=== PATIENT | male | born 1950 | race Caucasian/White ===

== ENCOUNTER → 2017-03-27 | Day surgery (SDC) | payer MEDICARE ==
[~2017-03-27] MED LIST: CENTRUM COMPLE1 EACH PO; CYMBALTA 30MG C30 MG PO; GLUCOTROL10 MG PO; HUMULIN R100 UNIT/1 SQ; LEVEMIR VI100 UNITS/ SQ; LIPITOR40 MG PO; LOSARTAN-HCTZ1 EAC2 PO; NEURONTIN400 MG PO; ONE TOUCH ULT1 STRIP; PRILOSEC20 MG PO
[2017-03-27 11:28] LABS: ALBUMIN 1.3 g/dL (3.4-4.8); BILIRUBIN - TOTAL 0.2 mg/dL (0.1-1.0); CREATININE 0.3 mg/dL (0.7-1.2); GLOBULIN (CALCULATION) 1.3 g/dL (2.2-4.2); POTASSIUM 4.2 mmol/L (3.5-5.1); TOTAL PROTEIN 2.6 g/dL (6.4-8.3)
[2017-03-27 11:50] LABS: HGB 6.7 g/dl (13.2-18.0); RBC 2.24 M/uL (4.70-6.00)
[2017-03-27 11:51] LABS: HCT 21.1 % (42.0-52.0); MCH 29.9 pg (25.0-31.0); MCHC 31.8 g/dL (32.0-36.0); MCV 94.2 fL (78.0-100.0); PLT 88 K/uL (150-400); WBC 2.8 K/uL (4.0-10.5)
== END | disposition home or self-care (01) ==
LOC: FAS 10:22
PROVIDERS: Surgery
DX: K21.0 Gastro-esophageal reflux disease with esophagitis (principal); K29.70 Gastritis, unspecified, without bleeding; I10 Essential (primary) hypertension; E11.40 Type 2 diabetes mellitus with diabetic neuropathy, unspecified; E78.00 Pure hypercholesterolemia, unspecified; J44.9 Chronic obstructive pulmonary disease, unspecified; J45.909 Unspecified asthma, uncomplicated; M19.90 Unspecified osteoarthritis, unspecified site; Z88.5 Allergy status to narcotic agent; Z85.828 Personal history of other malignant neoplasm of skin; Z87.891 Personal history of nicotine dependence; Z87.442 Personal history of urinary calculi; Z82.3 Family history of stroke; Z81.1 Family history of alcohol abuse and dependence; Z79.84 Long term (current) use of oral hypoglycemic drugs; Z79.4 Long term (current) use of insulin; Z79.899 Other long term (current) drug therapy; Z98.890 Other specified postprocedural states
CPT/HCPCS: 36415; 80053; 88305; J2704

== ENCOUNTER 2022-04-30 15:35 | Emergency (ER) | payer MEDICARE ==
[2022-04-30 16:00] LABS: BASOPHIL 0.9 % (0-2); EOSINOPHIL 1.2 % (0-7); HCT 42.8 % (42.0-52.0); HGB 13.8 g/dl (13.2-18.0); LYMPHOCYTE 29.5 % (15-48); MCH 31.8 pg (25.0-31.0); MCHC 32.2 g/dL (32.0-36.0); MCV 98.6 fL (78.0-100.0); MONOCYTE 10.1 % (0-12); MPV 10.3 fL (6.0-9.5); NRBC 0; PLT 191 K/uL (150-400); RBC 4.34 M/uL (4.70-6.00); RDW 14.6 % (11.5-14.0); WBC 6.6 K/uL (4.0-10.5)
[2022-04-30 16:11] LABS: ALBUMIN 3.1 g/dL (3.4-5.0); BILIRUBIN - TOTAL 0.3 mg/dL (0.2-1.0); BUN/CREAT RATIO (CALC) 35.6 RATIO; CREATININE 0.73 mg/dL (0.67-1.17); GLOBULIN (CALCULATION) 3.7 g/dL; MAGNESIUM 1.3 mg/dL (1.8-2.4); POTASSIUM 4.7 mmol/L (3.5-5.1); TOTAL PROTEIN 6.8 g/dL (6.4-8.2)
== END 2022-04-30 22:20 | disposition home or self-care (01) ==
LOC: FER 15:35
PROVIDERS: Emergency Medicine
DX: I44.2 Atrioventricular block, complete (principal); I10 Essential (primary) hypertension; E11.9 Type 2 diabetes mellitus without complications
CPT/HCPCS: 36415; 71045; 80053; 83735; 84484; 85025; 93005; J3475